=== PATIENT | female | born 1990 | race Caucasian/White ===

== ENCOUNTER 2024-09-26 13:45 | Outpatient (CLI) | payer OTHER, SELFPAY ==
[2024-09-26 16:29] LABS: Microscopic, Urine URINE MICROSCOPIC (MICROSCOPIC)
[2024-09-26 16:39] LABS: Basophils % 0.6 % (0.1-2.0); Eosinophils # 0.1 K/mm3 (0.0-0.4); Eosinophils % 1.9 % (0.1-12.0); Hematocrit 43.5 % (37.0-47.0); Hemoglobin 14.4 g/dL (12.2-16.2); Lymphocytes # 2.3 K/mm3 (0.7-4.5); Lymphocytes % 33.5 % (10-50); Mean Corpuscular HGB Conc 33.1 g/dL (31.8-35.4); Mean Corpuscular Volume 87.7 fl (81-99); Mean Platelet Volume 11.8 fl (7.4-10.4); Monocytes # 0.4 K/mm3 (0.1-1.0); Monocytes % 6.1 % (1.7-9.3); Neutrophils # 3.9 K/mm3 (1.8-7.8); Neutrophils % 57.6 % (37.0-80.0); Platelet Count 242 K/mm3 (142-424); Red Blood Count 4.96 M/mm3 (4.20-5.40); Red Cell Distribution Width 12.1 % (11.5-17.5); White Blood Count 6.8 K/mm3 (4.8-10.8)
[2024-09-26 16:41] LABS: Appearance,Urine Clear (Clear); Color,Urine Yellow (Yellow); PH,Urine 6.5 (5.0-8.5)
[2024-09-26 16:42] LABS: Bilirubin,Urine Negative (Negative); Blood, Urine Negative (Negative); Glucose,Urine (UA) Negative (Negative); Ketones,Urine Negative (Negative); Leukocyte Esterase,Urine Negative (Negative); Nitrate,Urine Negative (Negative); Protein,Urine Negative (Negative); Urobilinogen,Urine 0.2 EU/dl (0.2)
[2024-09-26 16:59] LABS: Hemoglobin A1C 5.4 % (4.0-6.0)
[2024-09-26 17:09] LABS: Bacteria,Urine 2+ /lpf; Mucus,Urine 1+ /lpf
[2024-09-26 17:10] LABS: Alanine Aminotransferase 33 U/L (12-78); Albumin Level 4.6 g/dl (3.5-5.0); Albumin/Globulin Ratio 1.6 (1.1-1.8); Alkaline Phosphatase 108 U/L (38-126); Aspartate Amino Transferase 27 U/L (14-36); Bilirubin,Total 0.2 mg/dl (0.2-1.3); Blood Urea Nitrogen 15 mg/dl (7-17); Calcium 9.4 mg/dl (8.4-10.2); Carbon Dioxide 26 mmol/L (22.0-30.0); Chloride 107 mmol/L (98-107); Chol/HDL Ratio 5.5 (1-3.5); Cholesterol 229 mg/dl (140-200); Estimated Glomerular Filt Rate 140 ml/min (>60); GFR (African American) 169 ML/MIN (>60); Globulin 2.8 g/dL (1.3-3.2); Glucose 97 mg/dl (74-100); HDL Cholesterol 42 mg/dl (40-60); Sodium 140 mmol/L (136-145); Total Protein,Serum 7.4 g/dl (6.3-8.2); Triglycerides 196 mg/dl (30-150); VLDL Cholesterol 39 mg/dL (0-40)
[2024-09-26 17:26] LABS: Free T4 (Free Thyroxine) 1.17 ng/dl (0.78-2.19)
[2024-09-26 17:31] LABS: 25-OH Vitamin D, Total 20.3 ng/mL (30-100)
[2024-09-26 18:25] LABS: Vitamin B12 461 pg/mL (239-931)
[2024-09-26 19:25] LABS: Hepatitis C Ab Qual. W/ RFX NEGATIVE (Negative)
[2024-09-26 19:37] LABS: Ferritin 66.5 ng/ml (6.24-137); Iron 85 ug/dL (37-170); Total Iron Binding Capacity 323 ug/dL (265-497)
[2024-09-26 20:34] LABS: HIV Combo NEGATIVE (Negative)
== END 2024-09-26 23:59 | disposition home or self-care (01) ==
LOC: LAB.DROPOF 10-18 10:20
PROVIDERS: PCP Nurse Practitioner Family; Visit Provider Nurse Practitioner Family
DX: Z11.4 Encounter for screening for human immunodeficiency virus [HIV] (principal); Z13.1 Encounter for screening for diabetes mellitus; Z11.59 Encounter for screening for other viral diseases; Z13.220 Encounter for screening for lipoid disorders; Z76.89 Persons encountering health services in other specified circumstances; Z68.38 Body mass index [BMI] 38.0-38.9, adult; E66.9 Obesity, unspecified; E55.9 Vitamin D deficiency, unspecified
CPT/HCPCS: 80053; 80061; 81001; 82306; 82607; 82728; 83036; 83540; 83550; 84439; 84443; 85025; 86803; 87086; 87389